=== PATIENT | male | born 1965 ===

== ENCOUNTER 2017-03-29 10:51 | Emergency (ER) | payer OTHER ==
[2017-03-29 11:00] VITALS: RESP 18
--- NOTE | 2017-03-29 11:53 | C.PDOC ---
History Of Present Illness 52 year old patient, with a history of heroin abuse, is brought to the ED by ambulance after he was found unresponsive on the street prior to arrival. Patient admits to snorting 1 bag of heroin this morning. He was recently discharged from a detox program. He is overdue for another shot of medication that he usually receives for opioid dependence. Patient also complains of hearing voices for the past 9 months. He denies any thoughts of self injury, suicidal ideation, homicidal ideation, nausea, vomiting or shortness of breath. Time Seen by Provider: 03/29/17 11:26 Chief Complaint (Nursing): Altered Mental Status History Per: Patient History/Exam Limitations: None Onset/Duration Of Symptoms: Mins (prior to arrival) Current Symptoms Are (Timing): Better Usual Baseline: Alert Oriented Exacerbating Factor(s): Unknown Severity: None Pain Scale Rating Of: 0 Recent travel outside of the [place]: No Additional History Per: EMS, Family Past Medical History Reviewed: Historical Data, Nursing Documentation, Vital Signs Vital Signs: Last Vital Signs Temp 98.8 F 03/29/17 13:28 Pulse 69 03/29/17 13:28 Resp 18 03/29/17 13:28 BP 120/87 03/29/17 13:28 Pulse Ox 93 L 03/30/17 11:05 Family History: States: Unknown Family Hx - Social History Hx Alcohol Use: No Hx Substance Use: Yes - Immunization History Hx Tetanus Toxoid Vaccination: No Hx Influenza Vaccination: No Hx Pneumococcal Vaccination: No Review Of Systems Except As Marked, All Systems Reviewed And Found Negative. Respiratory: Negative for: Shortness of Breath Gastrointestinal: Negative for: Nausea, Vomiting Psych: Negative for: Suicidal ideation, Other (homicidal) Physical Exam - Physical Exam Appears: Non-toxic, No Acute Distress, Other (alert and awake) Skin: Warm, Dry Head: Atraumatic, Normacephalic Neck: Normal ROM, Supple Chest: Symmetrical Cardiovascular: Rhythm Regular Respiratory: Normal Breath Sounds, No Rales, No Rhonchi, No Wheezing Gastrointestinal/Abdominal: Soft, No Tenderness Back: Normal Inspection Extremity: Normal ROM Neurological/Psych: Oriented x3, Normal Speech, Normal Cognition ED Course And Treatment - Laboratory Results Result Diagrams: 03/29/17 12:10 03/29/17 12:10 O2 Sat by Pulse Oximetry: 93 (room air) Pulse Ox Interpretation: Abnormal Progress Note: Case discussed with Crisis who will evaluate the patient at bedside. Medical Decision Making Medical Decision Making: discussed with crisis team; will get labs and crisis will evaluate. pulse ox noted to be 92-93 on ra. increased to 98 with deep inspiration. pt was seen by crisis team and cleared for discharge, with an appt with Dr Pfeiffer later this afternoon. Disposition - Disposition Referrals: Irma Pfeiffer MD [Staff Provider] - Disposition: HOME/ ROUTINE Disposition Time: 13:21 Condition: IMPROVED Additional Instructions: Follow up with Dr Pfeiffer today at [address] at 5:30 pm. Follow up with your program at [facility] as soon as possible. Instructions: Opioid Dependence (ED) Forms: General Discharge Instructions - Clinical Impression Clinical Impression: Opioid dependence - PA / CALL CENTER RECEPTIONIST / Resident Statement MD/DO has reviewed & agrees with the documentation as recorded. - Scribe Statement The provider has reviewed the documentation as recorded by the Scribe Ivett Talley All medical record entries made by the Scribe were at my direction and personally dictated by me. I have reviewed the chart and agree that the record accurately reflects my personal performance of the history, physical exam, medical decision making, and the department course for this patient. I have also personally directed, reviewed, and agree with the discharge instructions and disposition.
[2017-03-29 12:16] LABS: BASO # 0.1 K/uL (0.0-0.2); BASO % 0.6 % (0.0-2.0); EOS % 0.1 % (0.0-4.0); HEMATOCRIT 43.4 % (35.0-51.0); LYMPH # 1.3 K/uL (1.0-4.3); LYMPH % 14.3 % (20.0-40.0); MEAN CELL VOLUME 87.8 fL (80.0-94.0); MEAN CORPUSCULAR HEMOGLOBIN 29.1 pg (27.0-31.0); MEAN CORPUSCULAR HGB CONC 33.2 g/dL (33.0-37.0); MEAN PLATELET VOLUME 9.1 fL (7.2-11.7); MONO # 0.8 K/uL (0.0-0.8); MONO % 8.4 % (0.0-10.0); RED CELL DISTRIBUTION WIDTH 14.1 % (11.5-14.5)
[2017-03-29 12:26] LABS: CHLORIDE 101 mmol/L (98-107); SODIUM 137 mmol/L (132-148)
[2017-03-29 12:27] LABS: POTASSIUM 4.8 mmol/L (3.6-5.2)
[2017-03-29 12:29] LABS: ALB/GLOB RATIO 1.3 (1.0-2.1); ALKALINE PHOSPHATASE 61 U/L (38-126); ALT/SGPT 45 U/L (21-72); AST/SGOT 36 U/L (17-59); BILIRUBIN,TOTAL 0.8 mg/dL (0.2-1.3); BLOOD UREA NITROGEN 12 mg/dL (9-20); CARBON DIOXIDE 28 mmol/L (22-30); GFR AFRICAN-AMERICAN > 60; GLUCOSE,RANDOM 108 mg/dL (75-110)
[2017-03-29 12:30] LABS: ALCOHOL SERUM < 10 mg/dl (0-10)
[2017-03-29 13:14] LABS: GRANULAR CAST 6 /lpf (0-1); RBC URINE < 1 /hpf (0-3); URINE BILIRUBIN NEGATIVE (NEGATIVE); URINE BLOOD NEGATIVE (NEGATIVE); URINE COLOR Yellow (YELLOW); URINE GLUCOSE (UA) NORMAL (Normal); URINE KETONE NEGATIVE (NEGATIVE); URINE LEUKOCYTE ESTERASE NEG Leu/uL (Negative); URINE PROTEIN 1+ mg/dL (NEGATIVE); URINE UROBILINOGEN NORMAL mg/dL (0.2-1.0); WBC URINE < 1 /hpf (0-5)
[2017-03-29 13:30] VITALS: BP 120/87; PULSE 69; TEMP 98.8
[2017-03-30 11:04] VITALS: O2SAT 93
== END 2017-03-29 13:32 | disposition home or self-care (01) ==
LOC: C.ER 10:51
DX: F11.20 Opioid dependence, uncomplicated (principal)